=== PATIENT | male | born 1990 | race African-American/Black ===

== ENCOUNTER 2016-08-27 19:49 | Emergency (ER) | payer SELFPAY ==
[~2016-08-27] VITALS: Ht 167.6 cm; Wt 75.0 kg
--- NOTE | 2016-08-27 20:05 | PD ---
HPI . Suicidal ideation Chief Complaint: suicidal ideation Time Seen by Provider: 19:56 Travel History International Travel<30 days: No Contact w/Intl Traveler<30days: No History of Present Illness HPI Patient presents to us via [facility] chief complaint suicidal ideation and the secondary complaint of an asthma attack. The majority of the history was obtained from a police surgeon who escorted the patient here. The police surgeon reports that the patient was arrested for outstanding warrant. The officer states that the patient was doing fine for the first 45 minutes or so that he was in his custody. The patient then started complaining with asthma and difficulty breathing. He was taken to the fire department where he was given a nebulizer treatment. [facility] was contacted and the patient was transported here. [facility] reports that the patient started complaining with suicidal ideation in route to the hospital. He states that he would do it by hanging himself. He states that he had planned to hang himself yesterday when his family was away. However, he was unable to go through with it. Patient admits to substance abuse. Patient also admits to numerous life stressors. The police surgeon reports that they are capable of doing suicide watches in [facility]. [facility]LY [facility], [facility] Social History Tobacco Use: Yes Allergies-Medications (Allergen,Severity, Reaction): Coded Allergies: Haldol (Verified Allergy, Severe, EPS, 08/27/16) DYSTONIA Reported Meds & Prescriptions Reported Meds & Active Scripts Active No Active Prescriptions or Reported Medications Review of Systems Except as stated in HPI: all other systems reviewed are Neg Respiratory: Positive: Shortness of Breath, Wheezing Psychiatric: Positive: Suicidal Ideations, Substance Abuse Physical Exam Narrative GENERAL: Patient is awake and alert and in no acute distress. SKIN: Warm and dry. HEAD: Atraumatic. Normocephalic. EYES: Pupils equal and round. Extraocular movements are intact. ENT: No nasal bleeding or discharge. Mucous membranes pink and moist. NECK: Trachea midline. Neck is supple. CARDIOVASCULAR: Regular rate and rhythm. Heart sounds are normal. RESPIRATORY: No accessory muscle use. Lungs are clear with full air movement throughout. GASTROINTESTINAL: Abdomen soft, non-tender, nondistended. MUSCULOSKELETAL: No obvious deformities. No edema. NEUROLOGICAL: Awake and alert. No obvious cranial nerve deficits. Motor grossly within normal limits. Normal speech. PSYCHIATRIC: Patient reports suicidal ideation. He reports stress and depression. Speech is appropriate. Data Data Last Documented VS Vital Signs Date Time Temp Pulse Resp B/P Pulse Ox O2 Delivery O2 Flow Rate FiO2 08/27/16 20:27 98.2 108 18 118/66 99 Room Air Orders Complete Blood Count With Diff (08/27/16 19:56) Comprehensive Metabolic Panel (08/27/16 19:56) Drug Screen, Random Urine (08/27/16 19:56) Alcohol (Ethanol) (08/27/16 19:56) Labs Laboratory Tests Test 08/27/16 20:21 White Blood Count 7.6 TH/MM3 Red Blood Count 4.70 MIL/MM3 Hemoglobin 12.5 GM/DL Hematocrit 38.1 % Mean Corpuscular Volume 80.9 FL Mean Corpuscular Hemoglobin 26.7 PG Mean Corpuscular Hemoglobin 33.0 % Concent Red Cell Distribution Width 15.1 % Platelet Count 222 TH/MM3 Mean Platelet Volume 7.7 FL Neutrophils (%) (Auto) 45.1 % Lymphocytes (%) (Auto) 41.2 % Monocytes (%) (Auto) 7.2 % Eosinophils (%) (Auto) 5.8 % Basophils (%) (Auto) 0.7 % Neutrophils # (Auto) 3.4 TH/MM3 Lymphocytes # (Auto) 3.2 TH/MM3 Monocytes # (Auto) 0.5 TH/MM3 Eosinophils # (Auto) 0.4 TH/MM3 Basophils # (Auto) 0.1 TH/MM3 CBC Comment DIFF FINAL Differential Comment Sodium Level 147 MEQ/L Potassium Level 3.4 MEQ/L Chloride Level 112 MEQ/L Carbon Dioxide Level 26.4 MEQ/L Anion Gap 9 MEQ/L Blood Urea Nitrogen 9 MG/DL Creatinine 1.07 MG/DL Estimat Glomerular Filtration 100 ML/MIN Rate Random Glucose 92 MG/DL Calcium Level 8.5 MG/DL Total Bilirubin 0.3 MG/DL Aspartate Amino Transf 29 U/L (AST/SGOT) Alanine Aminotransferase 22 U/L (ALT/SGPT) Alkaline Phosphatase 68 U/L Total Protein 7.0 GM/DL Albumin 3.4 GM/DL Urine Opiates Screen NEG Urine Barbiturates Screen NEG Urine Amphetamines Screen NEG Urine Benzodiazepines Screen NEG Urine Cocaine Screen NEG Urine Cannabinoids Screen POS Ethyl Alcohol Level 143 MG/DL MDM Medical Decision Making Medical Screen Exam Complete: Yes Emergency Medical Condition: Yes Differential Diagnosis Differential diagnosis includes but is not limited to depression with suicidal gesture, suicide attempt, suicidal ideation, attention seeking behavior. Narrative Course This is a patient who is brought to us by [facility] after being arrested and complaining to the arresting officers of difficulty breathing. He was treated by the fire department with a nebulizer treatment with complete resolution of his respiratory difficulties. The patient then started complaining to the paramedics that he was suicidal. CBC & BMP Diagram 08/27/16 20:21 LFTs are normal. Tox screen is positive for marijuana and alcohol. Alcohol level was 143. This patient is medically cleared to go to [facility]. Diagnosis Primary Impression: Suicidal ideation Additional Impressions: Polysubstance abuse Asthma Qualified Code: J45.21 - Mild intermittent asthma with acute exacerbation Incarceration Additional Instructions: Suicide precautions in [facility] Scripts No Active Prescriptions or Reported Meds Disposition: 01 DISCHARGE HOME Condition: Stable Teresita Mccurdy MD August 27, 2016 20:04
[2016-08-27 20:27] VITALS: BP 118/66; PULSE 108; RESP 18; TEMP 98.2; O2SAT 99
[2016-08-27 20:56] LABS: AUTOMATED NEUTROPHIL # 3.4 TH/MM3 (1.8-7.7); BASOPHIL # 0.1 TH/MM3 (0-0.2); BASOPHIL % 0.7 % (0.0-2.0); EOSINOPHIL # 0.4 TH/MM3 (0-0.4); EOSINOPHIL % 5.8 % (0.0-4.0); HEMATOCRIT 38.1 % (39.0-51.0); HEMO FLAGS DIFF FINAL; LYMPH % 41.2 % (9.0-44.0); LYMPHOCYTE # 3.2 TH/MM3 (1.0-4.8); MEAN CELL VOLUME 80.9 FL (80.0-100.0); MEAN CORPUSCULAR HEMOGLOBIN 26.7 PG (27.0-34.0); MONO % 7.2 % (0.0-8.0); NEUT % 45.1 % (16.0-70.0); PLATELET COUNT 222 TH/MM3 (150-450); RED CELL DISTRIBUTION WIDTH 15.1 % (11.6-17.2); WHITE BLOOD COUNT 7.6 TH/MM3 (4.0-11.0)
[2016-08-27 21:06] LABS: AMPHETAMINE, URINE NEG (NEG); BARBITURATES, URINE NEG (NEG); COCAINE, URINE NEG (NEG)
[2016-08-27 21:26] LABS: ALKALINE PHOSPHATASE 68 U/L (45-117); ALT (GPT) 22 U/L (12-78); ANION GAP 9 MEQ/L (5-15); AST (GOT) 29 U/L (15-37); BICARBONATE 26.4 MEQ/L (21.0-32.0); BLOOD UREA NITROGEN 9 MG/DL (7-18); CHLORIDE 112 MEQ/L (98-107); GLOMERULAR FILTRATION RATE 100 ML/MIN (>89); POTASSIUM 3.4 MEQ/L (3.5-5.1); SODIUM (NA) 147 MEQ/L (136-145); TOTAL BILIRUBIN ADULT 0.3 MG/DL (0.2-1.0)
== END 2016-08-27 22:11 | disposition home or self-care (01) ==
LOC: NEPC 19:49
DX: R45.851 Suicidal ideations (principal); J45.909 Unspecified asthma, uncomplicated; F19.10 Other psychoactive substance abuse, uncomplicated; Z72.0 Tobacco use
CPT/HCPCS: 80053; 80307; 85025; 99285